=== PATIENT | female | born 1970 | race Caucasian/White ===

== ENCOUNTER 2016-11-25 14:52 | Outpatient (CLI) | payer MEDICAID ==
--- NOTE | 2016-11-26 09:37 | XRAY Report ---
SUPINE ABDOMEN: 11/25/2016 CLINICAL INDICATION: Pain. FINDINGS: Supine view of the abdomen demonstrates a normal bowel gas pattern. A tubal ligation clip is noted in the pelvis. No small bowel dilatation is present. IMPRESSION: NORMAL ABDOMEN. JOB #: [id number] EXT JOB #:[id number]
== END 2016-11-25 14:53 | disposition home or self-care (01) ==
LOC: DI.N 14:52
PROVIDERS: ATTEND Physician Assistant
DX: R10.9 Unspecified abdominal pain (principal)
CPT/HCPCS: 74000

== ENCOUNTER 2017-08-23 09:22 | Outpatient (CLI) | payer MEDICAID ==
[2017-08-23 13:20] LABS: BASOPHILS % (AUTO) 0.5 %; EOSINOPHILS # (AUTO) 0.2 10^3/uL (0.0-0.7); EOSINOPHILS % (AUTO) 1.7 %; HGB - HEMOGLOBIN 13.8 g/dL (12.0-16.0); LYMPHOCYTES # (AUTO) 2.3 10^3/uL (1.5-3.5); LYMPHOCYTES % (AUTO) 23.9 %; MEAN CORPUSCULAR HEMOGLOBIN 30.5 pg (27.0-31.0); MEAN CORPUSCULAR HGB CONC 34.3 g/dL (32.0-36.0); MEAN CORPUSCULAR VOLUME 89.1 fL (81.0-99.0); MEAN PLATELET VOLUME 9.5 fL (7.9-10.8); MONOCYTES # (AUTO) 0.8 10^3/uL (0.0-1.0); MONOCYTES % (AUTO) 7.8 %; NEUTROPHILS # (AUTO) 6.4 10^3/uL (1.5-6.6); NEUTROPHILS % (AUTO) 66.1 %; PLT - PLATELET COUNT 256 10^3/uL (130-450); RED BLOOD COUNT 4.51 10^6/uL (4.20-5.40); RED CELL DISTRIBUTION WIDTH 13.1 % (12.0-15.0); WHITE BLOOD COUNT 9.7 x10^3/uL (4.8-10.8)
[2017-08-23 14:02] LABS: ALBUMIN 4.2 g/dL (3.2-5.5); ALBUMIN/GLOBULIN RATIO 1.1 (1.0-2.2); ALKALINE PHOSPHATASE 73 IU/L (42-121); ALT ALANINE AMINOTRANSFERASE 15 IU/L (10-60); AST ASPARTATE AMINOTRANSFERASE 24 IU/L (10-42); BILIRUBIN,TOTAL 0.5 mg/dL (0.2-1.0); BUN - BLOOD UREA NITROGEN 12 mg/dL (6-20); CALCIUM 9.3 mg/dL (8.5-10.3); CARBON DIOXIDE - CO2 24 mmol/L (21-32); CHLORIDE 102 mmol/L (101-111); CHOL/HDL RATIO 7.2 (<4.4); CHOLESTEROL 251 mg/dL; CREATININE 0.9 mg/dL (0.4-1.0); GFR - MDRD 67 (>89); GLUCOSE 88 mg/dL (70-100); HDL CHOLESTEROL 35 mg/dL; LDL CHOLESTEROL,CALCULATED 168 mg/dL; LDL/HDL RATIO 4.8 (<4.4); SODIUM 136 mmol/L (135-145); TOTAL PROTEIN 7.9 g/dL (6.7-8.2); VLDL CHOLESTEROL 48 mg/dL
== END 2017-08-23 09:23 | disposition home or self-care (01) ==
LOC: LAB.N 09:22
PROVIDERS: ATTEND Nurse Practitioner Gerontology
DX: Z13.9 Encounter for screening, unspecified (principal); R10.9 Unspecified abdominal pain; I10 Essential (primary) hypertension
CPT/HCPCS: 36415; 80053; 80061; 83721; 84443; 85025

== ENCOUNTER 2017-09-17 09:11 | Outpatient (CLI) | payer MEDICAID ==
--- NOTE | 2017-09-18 17:37 | Ultrasound Report ---
EXAM: ABDOMEN ULTRASOUND EXAM DATE: 09/17/2017 09:28 AM. CLINICAL HISTORY: UNSPECIFIED ABDOMINAL PAIN. COMPARISON: None. TECHNIQUE: Real-time scanning was performed with static images obtained. FINDINGS: Liver: Mildly increased echogenicity with coarse echotexture. 16.0 cm. Main portal vein flow: Hepatop etal. Gallbladder: Normal. No stones, wall thickening, or sonographic Dunn's sign. Biliary System: Common bile duct measures 5 mm. No intrahepatic or extrahepatic ductal dilatation. Pancreas: Suboptimally evaluated. Visualized portion is unremarkable. Kidneys: Right: 11.7 cm longitudinally. Normal. No contour-deforming mass, stones, or hydronephrosis. Left: 10.6 cm longitudinally. Normal. No contour-deforming mass, stones, or hydronephrosis. Spleen: 11.4 cm. Normal in size and echotexture. Aorta and Inferior Vena Cava: Unremarkable. Other: None. IMPRESSION: Mildly increased liver echogenicity, in keeping with steatosis versus other hepatocellula r disease. Otherwise normal abdominal ultrasound. [facility] Referring Provider Line: [phone] SITE ID: [id number]
== END 2017-09-17 09:12 | disposition home or self-care (01) ==
LOC: DI 09:11
PROVIDERS: ATTEND Nurse Practitioner Gerontology
DX: R10.9 Unspecified abdominal pain (principal)
CPT/HCPCS: 76700

== ENCOUNTER 2017-09-23 16:17 | Outpatient (CLI) | payer MEDICAID ==
--- NOTE | 2017-09-23 17:05 | XRAY Report ---
EXAM: THORACIC SPINE RADIOGRAPHY EXAM DATE: 09/23/2017 04:24 PM. CLINICAL HISTORY: CHRONIC BACK PAIN. COMPARISON: None. TECHNIQUE: 2 views. FINDINGS: Alignment: Mild scoliosis. No listhesis. Bones: No fractures or bone lesions. Disks: Generalized disk space narrowing with marginal lipping. Soft Tissues: Normal. The visualized lungs and cardiomediastinal silhouette are normal. IMPRESSION: Scoliosis with mild degenerative changes. [facility] Referring Provider Line: [phone] SITE ID: [id number]
== END 2017-09-23 16:18 | disposition home or self-care (01) ==
LOC: DI.N 16:17
PROVIDERS: ATTEND Nurse Practitioner Gerontology
DX: M47.894 Other spondylosis, thoracic region (principal); M41.84 Other forms of scoliosis, thoracic region
CPT/HCPCS: 72070

== ENCOUNTER 2017-10-03 08:51 | Day surgery (SDC) | payer MEDICAID ==
[2017-10-03] MEDS ORDERED: LACTATED RINGERS 1,000 ML IV ONE (09:23)
[2017-10-03] MEDS ORDERED: MIDAZOLAM 2 MG/2 ML VIAL IVP ONE (10:19)
[2017-10-03] MEDS ORDERED: fentaNYL 250 MCG/5 ML VIAL IVP ONE (10:19)
[2017-10-03 10:52] VITALS: BP 132/78
== END 2017-10-03 08:52 | disposition home or self-care (01) ==
LOC: SDS 08:51
PROVIDERS: ATTEND Surgery
PROC: 0DBN8ZX Excision of Sigmoid Colon, Via Natural or Artificial Opening Endoscopic, Diagnostic (ICD-10-PCS; 2017-10-03)
PROC: 0DBK8ZX Excision of Ascending Colon, Via Natural or Artificial Opening Endoscopic, Diagnostic (ICD-10-PCS; principal; 2017-10-03 10:00)
DX: Z12.11 Encounter for screening for malignant neoplasm of colon (principal); D12.2 Benign neoplasm of ascending colon; K64.8 Other hemorrhoids; K63.5 Polyp of colon; F17.210 Nicotine dependence, cigarettes, uncomplicated; K21.9 Gastro-esophageal reflux disease without esophagitis
CPT/HCPCS: 45380; J3010; J7120; 88305

== ENCOUNTER 2017-10-28 08:56 | Outpatient (CLI) | payer MEDICAID ==
[2017-10-28] MEDS ORDERED: SINCALIDE 5 MCG VIAL ONE (10:24)
[2017-10-28] MEDS ORDERED: SINCALIDE 1.7 MCG in SODIUM CHLORIDE 0.9% 50 ML IV ONE (13:42)
--- NOTE | 2017-10-28 13:56 | Nuclear Medicine Report ---
EXAM: HEPATOBILIARY SCAN WITH CCK/KINEVAC ADMINISTRATION EXAM DATE: 10/28/2017 01:48 PM. CLINICAL HISTORY: EPIGASTRIC PAIN. COMPARISON: Ultrasound exam dated 09/17/2017. TECHNIQUE: Following the intravenous administration of 4.9 mCi of Tc99m Mebrofenin, a hepatobiliary s can was done centered on the liver and gallbladder in multiple sequential images and projections. Following the intravenous administration of 1.7 mcg of CCK/ Kinevac over the course of approximately 60 minutes, dynamic imaging was done and the gallbladder ejection fraction was calculated. FINDINGS: Normal extraction of tracer from the blood pool indicating normal hepatocellular function. The liver size and shape is grossly within normal limits. There is activity visualized within the bile ducts and gallbladder within the first hour. With CCK administration, the gallbladder demonstrates an effective contraction. The gallbladder eject ion fraction is calculated to be 95%, well above the lower limit of normal of 38% for a 60-minute inj ection. The patient did not report symptoms after CCK administration. No evidence of enteric reflux into the stomach. No significant collection of tracer remaining in the common bile duct by the end of the study. IMPRESSION: 1. Patent cystic duct. 2. Patent common bile duct. 3. Negative for acute or chronic cholecystitis. 4. No enterogastric bile reflux. 5. Gallbladder ejection fraction of 95%. [facility] Referring Provider Line: [phone] SITE ID: [id number]
== END 2017-10-28 08:57 | disposition home or self-care (01) ==
LOC: DI 08:56
PROVIDERS: ATTEND Surgery
DX: R10.13 Epigastric pain (principal)
CPT/HCPCS: 78227; A9537; J7040

== ENCOUNTER 2020-12-05 08:00 | Outpatient (CLI) | payer MEDICAID, OTHER ==
[2020-12-05 11:51] LABS: BASOPHILS # (AUTO) 0.1 10^3/uL (0.0-0.1); BASOPHILS % (AUTO) 0.7 %; EOSINOPHILS # (AUTO) 0.2 10^3/uL (0.0-0.7); EOSINOPHILS % (AUTO) 3.4 %; HCT - HEMATOCRIT 44.2 % (37.0-47.0); HGB - HEMOGLOBIN 14.7 g/dL (12.0-16.0); LYMPHOCYTES # (AUTO) 2.1 10^3/uL (1.5-3.5); MEAN CORPUSCULAR HEMOGLOBIN 30.3 pg (27.0-31.0); MEAN CORPUSCULAR HGB CONC 33.3 g/dL (32.0-36.0); MEAN CORPUSCULAR VOLUME 91.1 fL (81.0-99.0); MEAN PLATELET VOLUME 11.5 fL (7.9-10.8); MONOCYTES # (AUTO) 0.6 10^3/uL (0.0-1.0); MONOCYTES % (AUTO) 8.6 %; PLT - PLATELET COUNT 245 10^3/uL (130-450); RED BLOOD COUNT 4.85 10^6/uL (4.20-5.40); RED CELL DISTRIBUTION WIDTH 12.9 % (12.0-15.0)
[2020-12-05 12:00] LABS: ALBUMIN 4.1 g/dL (3.2-5.5); ALBUMIN/GLOBULIN RATIO 1.1 (1.0-2.2); ALKALINE PHOSPHATASE 74 IU/L (42-121); ALT ALANINE AMINOTRANSFERASE 15 IU/L (10-60); AST ASPARTATE AMINOTRANSFERASE 23 IU/L (10-42); BILIRUBIN,TOTAL 0.6 mg/dL (0.2-1.0); BUN - BLOOD UREA NITROGEN 17 mg/dL (6-20); CALCIUM 9.6 mg/dL (8.5-10.3); CARBON DIOXIDE - CO2 27 mmol/L (21-32); CHLORIDE 106 mmol/L (101-111); CHOL/HDL RATIO 6.9 (<4.4); CHOLESTEROL 213 mg/dL; CREATININE 1.1 mg/dL (0.4-1.0); GFR - MDRD 53 (>89); GLUCOSE 96 mg/dL (70-100); HDL CHOLESTEROL 31 mg/dL; LDL CHOLESTEROL,CALCULATED 144 mg/dL; LDL/HDL RATIO 4.6 (<4.4); POTASSIUM 4.5 mmol/L (3.5-5.0); SODIUM 140 mmol/L (135-145); TOTAL PROTEIN 7.8 g/dL (6.7-8.2); TRIGLYCERIDES 191 mg/dL; VLDL CHOLESTEROL 38 mg/dL
[2020-12-05 12:09] LABS: THYROID STIMULATING HORMONE < 0.08 uIU/mL (0.34-5.60)
[2020-12-05 12:44] LABS: FREE T4 (FREE THYROXINE) 0.98 ng/dL (0.58-1.64)
== END 2020-12-05 23:59 | disposition home or self-care (01) ==
LOC: LAB.WCP 08:00
PROVIDERS: ATTEND Family Medicine
DX: F32.9 Major depressive disorder, single episode, unspecified (principal); I10 Essential (primary) hypertension; K21.9 Gastro-esophageal reflux disease without esophagitis; F17.210 Nicotine dependence, cigarettes, uncomplicated
CPT/HCPCS: 36415; 80053; 80061; 83721; 84439; 84443; 85025

== ENCOUNTER 2021-03-02 08:35 | Outpatient (CLI) | payer OTHER ==
[2021-03-02 13:00] LABS: THYROID STIMULATING HORMONE < 0.08 uIU/mL (0.34-5.60)
[2021-03-02 13:01] LABS: FREE T3 4.25 pg/mL (2.5-3.9)
[2021-03-02 13:02] LABS: FREE T4 (FREE THYROXINE) 0.97 ng/dL (0.58-1.64)
== END 2021-03-02 08:36 | disposition home or self-care (01) ==
LOC: LAB.N 08:35
PROVIDERS: ATTEND Family Medicine
DX: M79.7 Fibromyalgia (principal); E07.9 Disorder of thyroid, unspecified
CPT/HCPCS: 36415; 84439; 84443; 84481

== ENCOUNTER 2021-03-19 12:46 | Outpatient (CLI) | payer OTHER | END 2021-03-19 12:47 | disposition home or self-care (01) | LOC: DI 12:46 | PROVIDERS: ATTEND Family Medicine | DX: I35.8 Other nonrheumatic aortic valve disorders (principal); I77.810 Thoracic aortic ectasia; F17.200 Nicotine dependence, unspecified, uncomplicated | CPT/HCPCS: 93306 ==

== ENCOUNTER 2021-03-21 14:14 | Outpatient (CLI) | payer OTHER ==
--- NOTE | 2021-03-21 18:14 | Ultrasound Report ---
PROCEDURE: Head or Neck Soft Tissue INDICATIONS: HYPERTHYROIDISM TECHNIQUE: Real-time scanning was performed of the thyroid gland, with image documentation. COMPARISON: None FINDINGS: Right: Thyroid lobe measures 5.2 x 2.1 x 2 x 1 cm. Left: Thyroid lobe measures 4.5 x 1.9 x 1.6 cm. Isthmus: 6 mm thick. The thyroid is diffusely heterogeneous on both sides. Nodule number: 1 Location: Left inferior thyroid Size: 0.4 x 0.3 cm. Composition: Solid Echogenicity: Hyperechoic Shape: wider than tall. Margins: Smooth Echogenic foci: Larger calcification can be seen. Total points: 5 ACR TI-RADS category: 4 IMPRESSION: Diffusely heterogeneous thyroid, with an area of calcification involving the left inferi or thyroid. By published criteria, no specific imaging follow-up is recommended. ACR TI-RADS definitions and recommendations: TI-RADS 1 (benign): 0 points. FNA not needed. TI-RADS 2 (not suspicious): 2 points. FNA not needed. TI-RADS 3 (mildly suspicious): 3 points. "FNA if 2.5 cm or larger, follow up if 1.5 cm or larger (at 1, 3, and 5 years). TI-RADS 4 (moderately suspicious): 4-6 points. "FNA if 1.5 cm or larger, follow up if 1 cm or larger (at 1, 2, 3, and 5 years). TI-RADS 5 (highly suspicious): 7 points or more. "FNA if 1 cm or larger, follow up if 0.5 cm or larger (every year for 5 years). Reviewed by: Haile Sierra MD on 03/21/2021 5:13 PM NILS Approved by: Haile Sierra MD on 03/21/2021 5:13 PM NILS Station ID: [id number]
== END 2021-03-21 14:15 | disposition home or self-care (01) ==
LOC: DI 14:14
PROVIDERS: ATTEND Family Medicine
DX: E05.90 Thyrotoxicosis, unspecified without thyrotoxic crisis or storm (principal); E04.1 Nontoxic single thyroid nodule

== ENCOUNTER 2021-03-23 10:18 | Outpatient (CLI) | payer OTHER ==
--- NOTE | 2021-03-24 08:44 | Mammography Report ---
BILATERAL DIGITAL SCREENING MAMMOGRAM 3D/2D: 03/23/2021 CLINICAL: Family history of breast cancer. Routine screening. Comparison is made to exam dated: 07/26/2014 mammogram - [facility]. There are sca ttered fibroglandular elements in both breasts. No significant masses, calcifications, or other findings are seen in either breast. There has been no significant interval change. IMPRESSION: NEGATIVE There is no mammographic evidence of malignancy. A 1 year screening mammogram is recommended. This exam was interpreted at Station ID: [id number]. NOTE: For mammograms, a report in lay terms will be sent to the patient. Approximately 15% of breast malignancies will not be visualized mammographically. In the management of a palpable breast mass, a negative mammogram must not discourage biopsy of a clinically suspicious lesion. Electronically Signed By: Gordon Damian M.D. slc/penrad:03/23/2021 12:43:58 ACR BI-RADS Category 1: Negative 3341F PARENCHYMAL PATTERN: (A) - The breast(s) demonstrate(s) scattered fibroglandular densities. BI-RADS CATEGORY: (1) - 1 RECOMMENDATION: (ANNUAL) - Recommend routine annual screening mammography. 20220324 1 year screening LATERALITY: (B)
== END 2021-03-23 10:19 | disposition home or self-care (01) ==
LOC: DI.N 10:18
DX: Z12.31 Encounter for screening mammogram for malignant neoplasm of breast (principal); Z80.3 Family history of malignant neoplasm of breast

== ENCOUNTER 2021-04-06 09:01 | Outpatient (CLI) | payer OTHER ==
--- NOTE | 2021-04-16 14:06 | Nuclear Medicine Report ---
PROCEDURE: Thyroid Imaging and Uptake INDICATIONS: HYPERTHYROIDISM RADIOPHARMACEUTICAL: 373 Ci I-123 sodium iodide by mouth. TECHNIQUE: I-123 sodium iodide was administered orally. Anterior neck images were obtained, and iodine uptake b y the thyroid gland calculated using engraver tender's software. COMPARISON: None available. FINDINGS: Morphology: The thyroid gland has normal morphology and uniform activity. No cold' or hot' thyroi d nodules are identified. Uptake: The 6 hour thyroid uptake is 8.3%; normal ranges are from 6-18%. 24 hour thyroid uptake is 20.9%; normal ranges are from 10-30%. IMPRESSION: Normal thyroid uptake and scan. Reviewed by: Luis Armando Whitney MD on 04/16/2021 2:05 PM PDT Approved by: Luis Armando Whitney MD on 04/16/2021 2:05 PM PDT Station ID: [id number]
== END 2021-04-06 09:02 | disposition home or self-care (01) ==
LOC: DI 09:01
PROVIDERS: ATTEND Family Medicine
DX: E05.90 Thyrotoxicosis, unspecified without thyrotoxic crisis or storm (principal)
CPT/HCPCS: 78014; A9509

== ENCOUNTER 2021-06-22 08:43 | Outpatient (CLI) | payer OTHER ==
[2021-06-22 13:28] LABS: BASOPHILS # (AUTO) 0.1 10^3/uL (0.0-0.1); BASOPHILS % (AUTO) 0.8 %; EOSINOPHILS # (AUTO) 0.3 10^3/uL (0.0-0.7); EOSINOPHILS % (AUTO) 3.6 %; HCT - HEMATOCRIT 46.8 % (37.0-47.0); HGB - HEMOGLOBIN 15.5 g/dL (12.0-16.0); LYMPHOCYTES # (AUTO) 2.5 10^3/uL (1.5-3.5); LYMPHOCYTES % (AUTO) 32.9 %; MEAN CORPUSCULAR HEMOGLOBIN 30.8 pg (27.0-31.0); MEAN CORPUSCULAR HGB CONC 33.1 g/dL (32.0-36.0); MONOCYTES # (AUTO) 0.6 10^3/uL (0.0-1.0); MONOCYTES % (AUTO) 8.4 %; NEUTROPHILS # (AUTO) 4.1 10^3/uL (1.5-6.6); PLT - PLATELET COUNT 279 10^3/uL (130-450); RED BLOOD COUNT 5.03 10^6/uL (4.20-5.40); RED CELL DISTRIBUTION WIDTH 13.7 % (12.0-15.0); WHITE BLOOD COUNT 7.5 x10^3/uL (4.8-10.8)
[2021-06-22 13:37] LABS: CALCIUM 9.8 mg/dL (8.5-10.3); CREATININE 1.1 mg/dL (0.4-1.0); POTASSIUM 4.3 mmol/L (3.5-5.0)
[2021-06-22 13:57] LABS: THYROID STIMULATING HORMONE 0.35 uIU/mL (0.34-5.60)
[2021-06-22 13:58] LABS: FREE T3 3.68 pg/mL (2.5-3.9)
[2021-06-22 13:59] LABS: FREE T4 (FREE THYROXINE) 0.76 ng/dL (0.58-1.64)
== END 2021-06-22 08:44 | disposition home or self-care (01) ==
LOC: LAB.N 08:43
PROVIDERS: ATTEND Family Medicine
DX: E05.90 Thyrotoxicosis, unspecified without thyrotoxic crisis or storm (principal); I10 Essential (primary) hypertension
CPT/HCPCS: 36415; 80048; 84439; 84443; 84481; 85025

== ENCOUNTER 2021-12-29 09:57 | Outpatient (CLI) | payer OTHER ==
[2021-12-29 13:09] LABS: BASOPHILS # (AUTO) 0.1 10^3/uL (0.0-0.1); BASOPHILS % (AUTO) 0.7 %; EOSINOPHILS # (AUTO) 0.3 10^3/uL (0.0-0.7); EOSINOPHILS % (AUTO) 4.3 %; HCT - HEMATOCRIT 44.9 % (37.0-47.0); HGB - HEMOGLOBIN 15.1 g/dL (12.0-16.0); LYMPHOCYTES # (AUTO) 2.4 10^3/uL (1.5-3.5); LYMPHOCYTES % (AUTO) 32.6 %; MEAN CORPUSCULAR HEMOGLOBIN 31.1 pg (27.0-31.0); MEAN CORPUSCULAR HGB CONC 33.6 g/dL (32.0-36.0); MEAN CORPUSCULAR VOLUME 92.4 fL (81.0-99.0); MEAN PLATELET VOLUME 11.8 fL (7.9-10.8); MONOCYTES # (AUTO) 0.5 10^3/uL (0.0-1.0); MONOCYTES % (AUTO) 6.8 %; NEUTROPHILS # (AUTO) 4.1 10^3/uL (1.5-6.6); NEUTROPHILS % (AUTO) 55.3 %; PLT - PLATELET COUNT 247 10^3/uL (130-450); RED BLOOD COUNT 4.86 10^6/uL (4.20-5.40); RED CELL DISTRIBUTION WIDTH 12.6 % (12.0-15.0); WHITE BLOOD COUNT 7.4 x10^3/uL (4.8-10.8)
[2021-12-29 13:36] LABS: ALBUMIN 4.1 g/dL (3.2-5.5); ALBUMIN/GLOBULIN RATIO 1.2 (1.0-2.2); ALKALINE PHOSPHATASE 65 IU/L (42-121); ALT ALANINE AMINOTRANSFERASE 13 IU/L (10-60); AST ASPARTATE AMINOTRANSFERASE 20 IU/L (10-42); BILIRUBIN,TOTAL 0.6 mg/dL (0.2-1.0); BUN - BLOOD UREA NITROGEN 18 mg/dL (6-20); CALCIUM 9.7 mg/dL (8.5-10.3); CARBON DIOXIDE - CO2 30 mmol/L (21-32); CHLORIDE 103 mmol/L (101-111); CHOL/HDL RATIO 6.1 (<4.4); CHOLESTEROL 215 mg/dL; GFR - MDRD 58 (>89); GLUCOSE 92 mg/dL (70-100); HDL CHOLESTEROL 35 mg/dL; LDL CHOLESTEROL,CALCULATED 143 mg/dL; LDL/HDL RATIO 4.1 (<4.4); POTASSIUM 4.2 mmol/L (3.5-5.0); SODIUM 140 mmol/L (135-145); TOTAL PROTEIN 7.6 g/dL (6.7-8.2); TRIGLYCERIDES 187 mg/dL; VLDL CHOLESTEROL 37 mg/dL
[2021-12-29 13:46] LABS: THYROID STIMULATING HORMONE 0.64 uIU/mL (0.34-5.60)
== END 2021-12-29 09:58 | disposition home or self-care (01) ==
LOC: LAB.N 09:57
PROVIDERS: ATTEND Family Medicine
DX: I35.8 Other nonrheumatic aortic valve disorders (principal); E66.9 Obesity, unspecified; E05.90 Thyrotoxicosis, unspecified without thyrotoxic crisis or storm; M79.7 Fibromyalgia; B35.1 Tinea unguium; R41.3 Other amnesia; G43.909 Migraine, unspecified, not intractable, without status migrainosus; I10 Essential (primary) hypertension
CPT/HCPCS: 36415; 80053; 80061; 83721; 84443; 85025

== ENCOUNTER 2023-12-27 12:40 | Outpatient (CLI) | payer MEDICAID ==
--- NOTE | 2023-12-28 11:00 | Mammography Report ---
BILATERAL DIGITAL DIAGNOSTIC MAMMOGRAM 3D/2D: 12/27/2023 CLINICAL: Palpable right breast lump by physician. Due for bilateral exam. Comparison is made to exams dated: 03/23/2021 mammogram and 07/26/2014 mammogram - [facility]. There are scattered areas of fibroglandular density in both breasts (category b / 25%-50% glandular t issue). There is a new cluster of focal asymmetries in the right breast at 3 o'clock anterior depth. This po ssibly correlates as palpated (patient cannot feel today). No other significant masses, calcifications, or other findings are seen in either breast. IMPRESSION: INCOMPLETE: NEEDS ADDITIONAL IMAGING EVALUATION The new cluster of focal asymmetries in the right breast is indeterminate. Additional views with pos sible ultrasound are recommended. This possibly correlates as palpated (patient cannot feel today). There is no abnormality seen in the right breast to correspond with the area of clinical concern at 1 2 o'clock, however, ultrasound is recommended. This was felt by patient's doctor. Based on the Tyrer Cuzick model (a risk assessment model) the patient's lifetime risk is 13.2% and he r 10 year risk is 3.6%. According to the ACR, ACS, and NCCN guidelines, an annual breast MRI exam laina ng with mammogram is recommended if the patient's lifetime risk is 20% or greater. This exam was interpreted at Station ID: [id number]. NOTE: For mammograms, a report in lay terms will be sent to the patient. Approximately 15% of breast malignancies will not be visualized mammographically. In the management of a palpable breast mass, a negative mammogram must not discourage biopsy of a clinically suspicious lesion. Electronically Signed By: Nasir Cordoba M.D. lc/:12/27/2023 13:47:32 ACR BI-RADS Category 0: Incomplete 3340F PARENCHYMAL PATTERN: (A) - The breast(s) demonstrate(s) scattered fibroglandular densities. BI-RADS CATEGORY: (0) - 0 Ultrasound [id number] Immediate follow-up LATERALITY: (B)
--- NOTE | 2023-12-28 11:00 | Ultrasound Report ---
LIMITED ULTRASOUND OF RIGHT BREAST: 12/27/2023 CLINICAL: Palpable right breast lump by physician. Comparison is made to exams dated: 12/27/2023 mammogram, 03/23/2021 mammogram, and 07/26/2014 mammogra - [facility]. Color flow ultrasound of the right breast 3 o'clock and 12 o'clock regions was performed. Sanchez scale images of the real-time examination were reviewed. There are 3-5mm cysts at 3:00 3-5cm from the nipple, corresponding to mammographic focal asymmetries. This possibly correlates as palpated (pt reported 3:00 palpable abnormalities, but cannot feel them today). IMPRESSION: BENIGN There is no sonographic evidence of malignancy. There are 3-5mm cysts at 3:00 3-5cm from the nipple, corresponding to mammographic focal asymmetries. This possibly correlates as palpated (pt reported 3:00 palpable abnormalities, but cannot feel them today). These are benign. There is no abnormality seen in the right breast to correspond with the area of clinical concern at 1 2 o'clock. Clinical followup recommended for the above findings. Any worsening symptoms should prompt re-evaluat ion with diagnostic mammogram and possible ultasound. Return to annual mammogram screening schedule is recommended. This exam was interpreted at Station ID: [id number]. Electronically Signed By: Nasir Cordoba M.D. lc/:12/27/2023 13:50:01 letter sent: No_Letter Ultrasound BI-RADS: 2 Benign BI-RADS CATEGORY: (2) - 2 Mammogram [id number] return to screening LATERALITY: (B)
== END 2023-12-27 12:41 | disposition home or self-care (01) ==
LOC: DI 12:40
PROVIDERS: ATTEND Nurse Practitioner Family
DX: N60.11 Diffuse cystic mastopathy of right breast (principal); R92.323 Mammographic fibroglandular density, bilateral breasts

== ENCOUNTER 2024-02-22 08:49 | Outpatient (CLI) | payer MEDICAID ==
[2024-02-22 11:54] LABS: BASOPHILS # (AUTO) 0.1 10^3/uL (0.0-0.1); BASOPHILS % (AUTO) 0.7 %; EOSINOPHILS # (AUTO) 0.2 10^3/uL (0.0-0.7); EOSINOPHILS % (AUTO) 2.3 %; HCT - HEMATOCRIT 47.6 % (37.0-47.0); HGB - HEMOGLOBIN 15.6 g/dL (12.0-16.0); LYMPHOCYTES # (AUTO) 2.1 10^3/uL (1.5-3.5); LYMPHOCYTES % (AUTO) 24.1 %; MEAN CORPUSCULAR HEMOGLOBIN 30.6 pg (27.0-31.0); MEAN CORPUSCULAR HGB CONC 32.8 g/dL (32.0-36.0); MEAN CORPUSCULAR VOLUME 93.5 fL (81.0-99.0); MEAN PLATELET VOLUME 11.3 fL (7.9-10.8); MONOCYTES # (AUTO) 0.5 10^3/uL (0.0-1.0); MONOCYTES % (AUTO) 5.6 %; NEUTROPHILS # (AUTO) 5.7 10^3/uL (1.5-6.6); NEUTROPHILS % (AUTO) 66.9 %; PLT - PLATELET COUNT 257 10^3/uL (130-450); RED BLOOD COUNT 5.09 10^6/uL (4.20-5.40); RED CELL DISTRIBUTION WIDTH 13.3 % (12.0-15.0); WHITE BLOOD COUNT 8.5 x10^3/uL (4.8-10.8)
[2024-02-22 12:05] LABS: ALBUMIN 4.3 g/dL (3.2-5.5); ALBUMIN/GLOBULIN RATIO 1.4 (1.0-2.2); ALKALINE PHOSPHATASE 74 IU/L (42-121); ALT ALANINE AMINOTRANSFERASE 9 IU/L (10-60); AST ASPARTATE AMINOTRANSFERASE 16 IU/L (10-42); BILIRUBIN,TOTAL 0.5 mg/dL (0.2-1.0); BUN - BLOOD UREA NITROGEN 14 mg/dL (6-20); CALCIUM 9.8 mg/dL (8.5-10.3); CARBON DIOXIDE - CO2 32 mmol/L (21-32); CHLORIDE 100 mmol/L (101-111); CHOLESTEROL 234 mg/dL; CREATININE 1.1 mg/dL (0.6-1.3); GFR - MDRD 52 (>89); GLUCOSE 93 mg/dL (74-104); HDL CHOLESTEROL 39 mg/dL; LDL CHOLESTEROL,CALCULATED 127 mg/dL; LDL/HDL RATIO 3.3 (<4.4); POTASSIUM 4.4 mmol/L (3.5-4.5); SODIUM 137 mmol/L (135-145); TOTAL PROTEIN 7.4 g/dL (6.4-8.9); TRIGLYCERIDES 338 mg/dL; VLDL CHOLESTEROL 68 mg/dL
[2024-02-22 12:19] LABS: THYROID STIMULATING HORMONE 1.28 uIU/mL (0.34-5.60)
[2024-02-22 12:25] LABS: PROLACTIN 6.01 ng/mL
== END 2024-02-22 08:50 | disposition home or self-care (01) ==
LOC: LAB.N 08:49
PROVIDERS: ATTEND Nurse Practitioner Family
DX: N64.52 Nipple discharge (principal); E66.9 Obesity, unspecified; R00.0 Tachycardia, unspecified
CPT/HCPCS: 36415; 80050; 80061; 83721; 84146